=== PATIENT | female | born 1955 | race Caucasian/White ===

== ENCOUNTER 2017-10-31 16:04 | Emergency (ER) | payer OTHER ==
[~2017-10-31] VITALS: Ht 160 cm; Wt 103.0 kg
[2017-10-31 16:06] VITALS: BP 124/69; PULSE 78; RESP 16; TEMP 98; O2SAT 95
[2017-10-31] MEDS ORDERED: DIAZEPAM 10 MG TAB PO ONE (17:00)
[2017-10-31] MEDS ORDERED: SODIUM CHLOR 0.9% 1000 ML INJ 1,000 ML IV ONE (17:00)
[2017-10-31 17:27] LABS: AUTOMATED NEUTROPHIL # 4.1 TH/MM3 (1.8-7.7); BASOPHIL % 0.7 % (0.0-2.0); EOSINOPHIL # 0.3 TH/MM3 (0-0.4); HEMATOCRIT 39.1 % (35.0-46.0); HEMO FLAGS DIFF FINAL; LYMPH % 25.2 % (9.0-44.0); LYMPHOCYTE # 1.7 TH/MM3 (1.0-4.8); MEAN CELL VOLUME 88.8 FL (80.0-100.0); MEAN CORPUSCULAR HEMOGLOBIN 31.1 PG (27.0-34.0); MEAN CORPUSCULAR HGB CONC 35.1 % (32.0-36.0); MONO % 8.6 % (0.0-8.0); NEUT % 60.5 % (16.0-70.0); PLATELET COUNT 228 TH/MM3 (150-450); RED CELL DISTRIBUTION WIDTH 14.1 % (11.6-17.2); WHITE BLOOD COUNT 6.8 TH/MM3 (4.0-11.0)
[2017-10-31 17:44] LABS: ANION GAP 5 MEQ/L (5-15); AST (GOT) 17 U/L (15-37); BICARBONATE 31.2 MEQ/L (21.0-32.0); BLOOD UREA NITROGEN 19 MG/DL (7-18); CHLORIDE 105 MEQ/L (98-107); GLOMERULAR FILTRATION RATE 45 ML/MIN (>89); SODIUM (NA) 141 MEQ/L (136-145)
[2017-10-31 17:45] LABS: ALT (GPT) 30 U/L (10-53)
[2017-10-31 17:47] LABS: ALKALINE PHOSPHATASE 97 U/L (45-117); TOTAL BILIRUBIN ADULT 0.3 MG/DL (0.2-1.0)
--- NOTE | 2017-10-31 18:01 | RADRPT ---
EXAM DATE/TIME: 10/31/2017 17:40 [facility] COMPARISON: No previous studies available for comparison. INDICATIONS : Patient complains of headache. RADIATION DOSE: 56.35 CTDIvol (mGy) MEDICAL HISTORY : None SURGICAL HISTORY : None. ENCOUNTER: Initial ACUITY: 1 day PAIN SCALE: 8/10 LOCATION: cranial TECHNIQUE: Multiple contiguous axial images were obtained of the head. Using automated exposure control and adj ustment of the mA and/or kV according to patient size, radiation dose was kept as low as reasonably a chievable to obtain optimal diagnostic quality images. DICOM format image data is available electro nically for review and comparison. FINDINGS: CEREBRUM: The ventricles are normal. No evidence of midline shift, mass lesion, hemorrhage or acute infarction . No extra-axial fluid collections are seen. POSTERIOR FOSSA: The cerebellum and brainstem are intact. The 4th ventricle is midline. The cerebellopontine angle i s unremarkable. EXTRACRANIAL: Visualized sinuses are clear. SKULL: The calvaria is intact. No evidence of skull fracture. CONCLUSION: No acute intracranial abnormality is identified. Angel Schofield MD on October 31, 2017 at 17:57 Board Certified Radiologist. This report was verified electronically.
[2017-10-31] MEDS ORDERED: DIAZ5 PO (18:28)
--- NOTE | 2017-10-31 18:28 | PD ---
HPI Chief Complaint: Anxiety Time Seen by Provider: 16:34 Travel History International Travel<30 days: No Contact w/Intl Traveler<30days: No Traveled to known affect area: No History of Present Illness HPI Patient is a 62-year-old female comes in complaining of muscle spasms. She says for the past week she's had involuntary movement of her head. She went to see her primary care doctor who sent her here for further testing. Per the documentation from the PCP, she wants to rule out medical problems, but it could be a psychiatric issue. Patient does say she is under a lot of stress at work, and thinks that this is related. She does complain of a headache, mostly across the front of her head, but some in the back of her head. She tried taking some Tylenol, but says this did not help with her headache. PFSH Past Medical History Hx Anticoagulant Therapy: Yes (ASPIRIN ) ?: Not Social History Alcohol Use: No Tobacco Use: No Substance Use: No Allergies-Medications (Allergen,Severity, Reaction): Coded Allergies: No Known Allergies (Verified Allergy, Severe, 02/28/05) Review of Systems Except as stated in HPI: all other systems reviewed are Neg General / Constitutional: No: Fever, Chills Eyes: No: Blurred Vision HENT: Positive: Headaches, Lightheadedness Cardiovascular: No: Chest Pain or Discomfort Respiratory: No: Shortness of Breath Gastrointestinal: No: Nausea, Vomiting Genitourinary: No: Dysuria Musculoskeletal: Positive: Pain, No: Edema Skin: No Rash, No Change in Pigmentation Neurologic: No: Weakness, Dizziness Psychiatric: Positive: Anxiety Physical Exam Narrative GENERAL: Awake and alert, in no acute distress. SKIN: Focused skin assessment warm/dry. HEAD: Atraumatic. Normocephalic. EYES: Pupils equal and round. No scleral icterus. Extraocular movements intact. ENT: Mucous membranes pink and moist. NECK: Trachea midline. No JVD. CARDIOVASCULAR: Regular rate and rhythm. No murmur appreciated. RESPIRATORY: No accessory muscle use. Clear to auscultation. Breath sounds equal bilaterally. GASTROINTESTINAL: Abdomen soft, non-tender, nondistended. MUSCULOSKELETAL: No obvious deformities. No clubbing. No cyanosis. No edema. NEUROLOGICAL: Awake and alert. No obvious cranial nerve deficits. Motor grossly within normal limits. Normal speech. PSYCHIATRIC: Appropriate mood and affect; insight and judgment normal. Data Data Last Documented VS Vital Signs Date Time Temp Pulse Resp B/P (MAP) Pulse Ox O2 Delivery O2 Flow Rate FiO2 10/31/17 16:06 98.0 78 16 124/69 (87) 95 Room Air Orders Orders Ct Brain W/O Iv Contrast(Rout) (10/31/17 ) Iv Access Insert/Monitor (10/31/17 16:53) Complete Blood Count With Diff (10/31/17 16:53) Comprehensive Metabolic Panel (10/31/17 16:53) Sodium Chlor 0.9% 1000 Ml Inj (Ns 1000 M (10/31/17 17:00) Diazepam (Valium) (10/31/17 17:00) Labs Laboratory Tests Test 10/31/17 17:10 White Blood Count 6.8 TH/MM3 Red Blood Count 4.40 MIL/MM3 Hemoglobin 13.7 GM/DL Hematocrit 39.1 % Mean Corpuscular Volume 88.8 FL Mean Corpuscular Hemoglobin 31.1 PG Mean Corpuscular Hemoglobin Concent 35.1 % Red Cell Distribution Width 14.1 % Platelet Count 228 TH/MM3 Mean Platelet Volume 7.7 FL Neutrophils (%) (Auto) 60.5 % Lymphocytes (%) (Auto) 25.2 % Monocytes (%) (Auto) 8.6 % Eosinophils (%) (Auto) 5.0 % Basophils (%) (Auto) 0.7 % Neutrophils # (Auto) 4.1 TH/MM3 Lymphocytes # (Auto) 1.7 TH/MM3 Monocytes # (Auto) 0.6 TH/MM3 Eosinophils # (Auto) 0.3 TH/MM3 Basophils # (Auto) 0.0 TH/MM3 CBC Comment DIFF FINAL Differential Comment Blood Urea Nitrogen 19 MG/DL Creatinine 1.22 MG/DL Random Glucose 93 MG/DL Total Protein 7.2 GM/DL Albumin 3.5 GM/DL Calcium Level 8.7 MG/DL Alkaline Phosphatase 97 U/L Aspartate Amino Transf (AST/SGOT) 17 U/L Alanine Aminotransferase (ALT/SGPT) 30 U/L Total Bilirubin 0.3 MG/DL Sodium Level 141 MEQ/L Potassium Level 4.0 MEQ/L Chloride Level 105 MEQ/L Carbon Dioxide Level 31.2 MEQ/L Anion Gap 5 MEQ/L Estimat Glomerular Filtration Rate 45 ML/MIN MDM Medical Decision Making Medical Screen Exam Complete: Yes Emergency Medical Condition: Yes Differential Diagnosis Muscle spasm versus electrolyte abnormality versus intracranial pathology versus anxiety Narrative Course Patient is a 62-year-old female who comes in complaining of a muscle spasm and involuntary movements of her head. While speaking with her, it seems as though the movements are controllable and she only has them when she is not distracted. Exam shows no neurologic abnormalities. IV established, labs sent. Labs show electrolytes within normal limits. CT of the head performed shows no acute abnormalities. She is given Valium and feels much better. She' ll be discharged with a prescription for a few Valium. She is advised follow- up with her doctor. Advised to return to the ED as needed for any worsening symptoms. Diagnosis Primary Impression: Muscle spasm Patient Instructions: General Instructions, Muscle Spasm (ED) Additional Instructions: Take Valium as needed for muscle spasm. Follow-up with your doctor. Drink plenty of fluids. Return to the ED as needed for any worsening symptoms. Scripts Diazepam (Valium) 5 Mg Tab 5 MG PO TID Y for SPASM, #7 TAB 0 Refills Prov: Martina Dotson MD 10/31/17 Disposition: DISCHARGE HOME Condition: Stable Martina Dotson MD Oct 31, 2017 18:28
[2017-10-31 18:38] VITALS: BP 132/68; PULSE 72; RESP 16; O2SAT 100
== END 2017-10-31 18:52 | disposition home or self-care (01) ==
LOC: NEPE 16:04
DX: M62.838 Other muscle spasm (principal); R25.9 Unspecified abnormal involuntary movements; R51 Headache; Z79.82 Long term (current) use of aspirin
CPT/HCPCS: 70450; 80053; 85025; 99285; J7030

== ENCOUNTER 2017-11-04 12:37 | Inpatient (IN) | payer OTHER ==
[~2017-11-04] VITALS: Ht 161.3 cm; Wt 105.8 kg
[~2017-11-04 12:37] MED LIST: DIAZ5 PO
[2017-11-04 12:39] VITALS: BP 126/80; PULSE 78; RESP 18; TEMP 98.6; O2SAT 97
[2017-11-04 13:03] VITALS: BP 134/78; PULSE 71; RESP 18; TEMP 97.8; O2SAT 96
--- NOTE | 2017-11-04 15:00 | PD ---
HPI Chief Complaint: Medical Clearance Time Seen by Provider: 14:39 Travel History International Travel<30 days: No Contact w/Intl Traveler<30days: No Traveled to known affect area: No History of Present Illness HPI 62-year-old female presents to the department concerned about panic attacks and anxiety. Patient states that she was here last with similar complaints and had multiple labs and CT head performed without acute process. Patient was discharged with Valium and diagnosed her muscle spasms and advised follow-up with primary care physician. Patient states that she has not followed up with her primary care or psych by her primary care physician did suggest she follow up with [facility]. Because of weight times at [facility], patient was allegedly advised to return to the emergency department for evaluation by psychiatrist. Patient denies fever, chills, chest pain, short of breath. Denies hallucinations, suicidal or homicidal ideations. Patient denies illicit drug use and is taking her current medications as prescribed. Patient has history of mitral valve prolapse, hypertension, depression, and asthma. Patient took her last Valium at 1245 this morning and is concerned that she is developing a panic attack again. PFSH Past Medical History Hx Anticoagulant Therapy: Yes (ASPIRIN ) Social History Alcohol Use: No Tobacco Use: No Substance Use: No Allergies-Medications (Allergen,Severity, Reaction): Coded Allergies: No Known Allergies (Verified Allergy, Severe, 02/28/05) naproxen (Verified Allergy, Unknown, Hives, 11/04/17) Per pt. pseudoephedrine (Verified Allergy, Unknown, Tachycardia, 11/04/17) Per pt. Reported Meds & Prescriptions Reported Meds & Active Scripts Active Valium (Diazepam) 5 Mg Tab 5 Mg PO TID PRN Review of Systems Except as stated in HPI: all other systems reviewed are Neg Physical Exam Narrative GENERAL: Well developed well nourished in no apparent distress SKIN: Focused skin assessment warm/dry. HEAD: Atraumatic. Normocephalic. EYES: Pupils equal and round. No scleral icterus. No injection or drainage. ENT: No nasal bleeding or discharge. Mucous membranes pink and moist. NECK: Trachea midline. No JVD. CARDIOVASCULAR: Regular rate and rhythm. No murmur appreciated. RESPIRATORY: No accessory muscle use. Clear to auscultation. Breath sounds equal bilaterally. MUSCULOSKELETAL: No obvious deformities. No clubbing. No cyanosis. No edema. NEUROLOGICAL: Awake and alert. No obvious cranial nerve deficits. Motor grossly within normal limits. Normal speech. PSYCHIATRIC: hypomanic, mood fluctuations Data Data Last Documented VS Vital Signs Date Time Temp Pulse Resp B/P (MAP) Pulse Ox O2 Delivery O2 Flow Rate FiO2 11/04/17 18:28 69 18 137/84 (101) 97 Room Air 11/04/17 13:03 97.8 Orders Orders Psych Screen (11/04/17 15:00) Diet Regular Basic (11/04/17 Dinner) MDM Medical Decision Making Medical Screen Exam Complete: Yes Emergency Medical Condition: Yes Differential Diagnosis Panic attack, anxiety, depression, mood disorder, MDD Narrative Course 62-year-old female presents to the department concerned about panic attacks and anxiety. Patient states that she was here last with similar complaints and had multiple labs and CT head performed without acute process. Patient was discharged with Valium and diagnosed her muscle spasms and advised follow-up with primary care physician. Patient states that she has not followed up with her primary care or psych by her primary care physician did suggest she follow up with [facility]. Because of weight times at [facility], patient was allegedly advised to return to the emergency department for evaluation by psychiatrist. Patient denies fever, chills, chest pain, short of breath. Denies hallucinations, suicidal or homicidal ideations. Patient denies illicit drug use and is taking her current medications as prescribed. Patient has history of mitral valve prolapse, hypertension, depression, and asthma. Vital signs stable Physical exam unremarkable Reviewed CT head scan October 31 which were unremarkable and noncontributory. Patient states compliance with medications and denies illicit drug use. I have no reason to believe otherwise. Patient is cleared to see psych. Diagnosis Primary Impression: Anxiety Condition: Stable Mallory Love Nov 04, 2017 15:00
[2017-11-04 18:28] VITALS: BP 137/84; PULSE 69; RESP 18; O2SAT 97
[2017-11-04] MEDS ORDERED: LEVO137T2 PO (20:51)
[2017-11-04] MEDS ORDERED: SERT-129 PO (20:51)
[2017-11-04] MEDS ORDERED: METO25TA3 PO (20:51)
[2017-11-04] MEDS ORDERED: PRAV40TA2 PO (20:51)
[2017-11-05 06:24] VITALS: BP_SYST 137; BP_DIAS 6; BP_DIAS 73; PULSE 83; RESP 18; O2SAT 98
[2017-11-05] MEDS ORDERED: ALUMINUM/MAGNESIUM/SIMETH 30 ML CUP PO PRN (11:15)
[2017-11-05] MEDS ORDERED: LORazepam 2 MG/ML VIAL IM PRN (11:15)
[2017-11-05] MEDS ORDERED: MAGNESIUM HYDROXIDE SUSP 30 ML CUP PO PRN (11:15)
--- NOTE | 2017-11-05 11:28 | HHI.HP ---
Provisional Diagnosis Admission Date Nov 05, 2017 at 11:06 [place] I. Brief psychotic disorder Certification of Person's Competence To Provide Express and Informed Consent I have personally examined Alicia Chen , a person being served at [facility] on, Nov 05, 2017 11:12. Express and informed consent means consent voluntarily given in writing, by a competent person, after sufficient explanation and disclosure of the subject matter involved to enable the person to make a knowing and willful decision without any element of force, fraud, deceit, duress, or other form of constraint or coercion. This person is 18 years of age or older, is not now known to be incompetent to consent to treatment with a guardian advocate, and does not have a health care surrogate or proxy currently making medical treatment decisions. I have found this person to be one of the following: [X] Competent to provide express and informed consent, as defined above, for voluntary admission to this facility and is competent to provide express and informed consent for treatment. He/she has the consistent capacity to make well reasoned, willful, and knowing decisions concerning his or her medical or mental health treatment. The person fully and consistently understands the purpose of the admission for examination/placement and is fully capable of personally exercising all rights assured [place] Incompetent to provide express and informed consent to voluntary admission, and this is incompetent to provide express and informed consent to treatment. The person must be transferred to involuntary status and a petition for a guardian advocate filed with the Circuit Court. [] Refusing to provide express and informed consent to voluntary admission but is competent to provide express and informed consent for treatment. The person must be discharged or transferred to involuntary status. Form shall be completed within 24 hours of a person's arrival at the receiving facility and filed in the clinical record of each person: 1. Admitted on a voluntary basis 2. Permitted to provide express and informed consent to his/her own treatment 3. Allowed to transfer from involuntary to voluntary status 4. Prior to permitting a person to consent to his or her own treatment after having been previously found incompetent to consent to treatment. History of Present Illness Capacity: Has Capacity HPI 62-year-old female presenting for the third time in the last several weeks with bizarre complaints of involuntary head movement issues, mood and anxiety symptoms, delusional believes, memory problems, etc. This physician reviewed patient's previous visits to [place] and spent considerable time interviewing her. She has an inappropriate affect and cries over the loss of her mother, 2 years ago but almost immediately smiles and laughs for no good reason. She is exhibiting flight of ideas and often times pressured speech, with tangentiality and circumstantiality. She reports significant memory loss that has been associated with inability to adequately do her job, impairing her decision making ability, making her fearful, etc. She feels she has somehow had a short circuiting of her brain and "blown multiple fuses". She is hyper druze and has been reading a Bible in her room in the emergency department for many hours. She states she prays a lot and has druze experiences which can be described as other worldly. At this time she is unable to adequately care for herself and falls down repeatedly for no apparent reason, losing consciousness, "seeing stars" and experiencing multiple concussions. She feels confused in her thinking and certainly presents herself demonstrating confused and disorganized thoughts. No alcohol or drug abuse is involved and her toxicology screen is negative Review of Systems Psychiatric: COMPLAINS OF: Anxiety, Confusion, Mood changes, Delusions Except as stated in HPI: all other systems reviewed are Neg Past Psych History Psychological trauma history Denied for psychological trauma. Violence risk - others (6 mos) Minimal. Violence risk - self (6 mos) High risk of harm to self, either "inadvertently" or on purpose. Substance Abuse History Drugs/Alcohol past 12 months Denied Past Family Social History Coded Allergies: naproxen (Verified Allergy, Unknown, Hives, 11/04/17) Per pt. pseudoephedrine (Verified Allergy, Unknown, Tachycardia, 11/04/17) Per pt. Active Scripts Diazepam (Valium) 5 Mg Tab, 5 MG PO TID Y for SPASM, #7 TAB 0 Refills Prov:Martina Dotson MD 10/31/17 Reported Medications Sertraline (Sertraline) 100 Mg Tab, 150 MG PO DAILY, #30 TAB 0 Refills 11/04/17 Metoprolol Tartrate (Metoprolol Tartrate) 25 Mg Tab, 25 MG PO BID, #60 TAB 0 Refills 11/04/17 Pravastatin (Pravastatin) 40 Mg Tab, 40 MG PO DAILY for Cholesterol Management, #30 TAB 0 Refills 11/04/17 Levothyroxine (Levothyroxine) 137 Mcg Tab, 137 MCG PO DAILY for Thyroid, #30 TAB 0 Refills 11/04/17 Current Medications Medications (Trade) Dose Ordered Sig/[place] Route Start Time Stop Time Status Last Admin (Ativan) 1 mg Q6H PRN PO 11/05/17 11:15 UNV (Ativan Inj) 1 mg Q6H PRN IM 11/05/17 11:15 UNV (Tylenol) 650 mg Q4H PRN PO 11/05/17 11:15 UNV (Milk Of Magnesia Liq) 30 ml DAILY PRN PO 11/05/17 11:15 UNV (Mag-Al Plus Susp Liq) 30 ml Q6H PRN PO 11/05/17 11:15 UNV Family Psych History Patient describes one or both parents as experiencing "mental breakdowns" during their lives in which they were incapacitated. Other family relatives have also had "mental breakdowns". 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 However, she has been unable to go to work for the last several days. She is but states her is retired. She has a daughter, but is overwrought with stress from her daughter's situation. As stated above, patient does not use alcohol or drugs. Patient is unable to work at this time. She is unable to function at this time. She is confused, falling for no apparent reason, and presenting with headaches, memory loss, anxiety, inappropriate affect, etc. Patient's Strengths (min. 2) Verbal and has access to healthcare. Physical Exam GENERAL: SKIN: Warm and dry. HEAD: Normocephalic. EYES: No scleral icterus. No injection or drainage. NECK: Supple, trachea midline. No JVD or lymphadenopathy. CARDIOVASCULAR: Regular rate and rhythm without murmurs, gallops, or rubs. RESPIRATORY: Breath sounds equal bilaterally. No accessory muscle use. GASTROINTESTINAL: Abdomen soft, non-tender, nondistended. MUSCULOSKELETAL: No cyanosis, or edema. BACK: Nontender without obvious deformity. No CVA tenderness. Vital Signs Vital Signs Date Time Temp Pulse Resp B/P (MAP) Pulse Ox O2 Delivery O2 Flow Rate FiO2 11/05/17 06:24 83 18 137/73 (94) 98 Room Air 11/04/17 13:03 97.8 Mental Status Examination Appearance: Appropriate Consciousness: Alert Orientation: Person, Place, Date/Time Motor Activity: Abnormal gait Speech: Pressured, Hesitant Language: Adequate Fund of Knowledge: Inadequate Attention and Concentration: Inadequate Memory: Impaired Mood: Sad, Anxious, Manic Affect: Labile Thought Process & Associations: Circumstantial, Disorganized, Tangential Thought Content: Bizarre thinking, Ideas of reference, Depersonalization, Derealization, Delusional Hallucination Type: None Delusion Type: Somatic Suicidal Ideation: No Suicidal Plan: No Suicidal Intention: No Homicidal Ideation: No Homicidal Plan: No Homicidal Intention: No Insight: Fair Judgment: Impulsive Assessment & Plan Problem List: (1) Brief psychotic disorder ICD Codes: F23 - Brief psychotic disorder Assessment & Plan Estimated LOS: days. 62-year-old female presents repeatedly to the emergency department with multiple bizarre complaints, inappropriate mood changes, inappropriate affect, complaints of loss of consciousness with concussions, confusion, memory loss, delusional thinking of having "blown multiple fuses" in her brain, inability to work and inability to care for herself. She is therefore being admitted for further evaluation and treatment. This physician has ordered an MRI scan of the patient's brain as CT scans were negative and she continues to complain of headache, involuntary movements, confusion, syncopal episodes, concussions, etc. A neurology consult was also requested for the same reasons. This physician ordered a CBC and comprehensive metabolic panel to determine if any infectious process or metabolic process is causing or contributing to her mood and anxiety symptoms, confusion, etc. Also ordered is thyroid stimulating hormone level, vitamin B-12 and vitamin D level, and case deficiencies in these areas are causing or contributing to the patient' s confusion and mood disorder. An EKG is being ordered to determine the patient 's cardiac conduction status prior to instituting significant changes in psychotropic medicines, which may adversely affect her heart. This physician spoke to the patient's nurse, [place], regarding her recent behavior. Case management will also be involved to assist with information gathering and disposition planning. Bakari Noel MD Nov 05, 2017 11:28
[2017-11-05 12:01] VITALS: BP 137/73; PULSE 83; RESP 18; O2SAT 98
[2017-11-05] MEDS: ACETAMINOPHEN 325 MG TAB PO PRN (12:10)
[2017-11-05] MEDS ORDERED: GADODIAMIDE PF 287 MG/ML 20 ML VIAL (for RAD MRI) IVCONTRAST ONE (13:12)
--- NOTE | 2017-11-05 14:01 | RADRPT ---
EXAM DATE/TIME: 11/05/2017 12:52 [facility] COMPARISON: No previous studies available for comparison. INDICATIONS : Involuntary head movement issues, mood and anxiety symptoms, delusional believes, memory problems. CONTRAST: 20 cc Omniscan (gadodiamide) IV MEDICAL HISTORY : Hypertension. SURGICAL HISTORY : section. Tonsillectomy. ENCOUNTER: Initial ACUITY: 1 day PAIN SCORE: 0/10 LOCATION: cranial TECHNIQUE: Multiplanar, multisequence MRI of the brain was performed both prior to and following the administrat ion of paramagnetic contrast. FINDINGS: CEREBRUM: The ventricles are mildly prominent. No evidence of midline shift, mass lesion, hemorrhage or acute infarction. No extraaxial fluid collections are seen. The pituitary gland and suprasellar cistern a re normal in configuration. WHITE MATTER: No significant signal abnormalities are seen in the white matter. POSTERIOR FOSSA: The cerebellum and brainstem are intact. The 4th ventricle is midline. The cerebellopontine angle is unremarkable. The cerebellar tonsils are normal in position. DIFFUSION IMAGING: No focal areas of restricted diffusion are seen. No evidence of acute infarction. EXTRACRANIAL: The visualized portions of the orbits and paranasal sinuses are unremarkable. POST-CONTRAST: No abnormal areas of parenchymal or dural enhancement. No evidence of blood-brain barrier breakdown. CONCLUSION: 1. Mildly prominent ventricles 2. Otherwise normal exam without evidence of acute or chronic ischemic disease, hemorrhage, mass or e jenn. 3. No evidence of enhancing intra-or extra-axial lesions Rafa Carver MD on November 05, 2017 at 13:57 Board Certified Radiologist. This report was verified electronically.
--- NOTE | 2017-11-05 15:20 | PD.CONS ---
HPI Service [facility] Hospitalists Consult Requested By Dr. Noel Reason for Consult "Reporting involuntary movements of her head. Bizarre presentation. Please evaluate." Primary Care Physician Radha Hurt DO Diagnoses: (1) Hyperlipidemia (2) Hypothyroidism (3) Mitral valve prolapse (4) Anxiety History of Present Illness The patient is a 62-year-old female admitted to inpatient psychiatry. Hospitalist consultation was requested for evaluation of reported involuntary movements of the head, headache, and other vague complaints. The patient states that over the past few days she has had increased difficulty focusing at work. She has noted some difficulty speaking as well as some confusion. She has been very anxious. She denies fever, chills, night sweats. She denies chest pain, dyspnea. She describes involuntary movements including flailing of her arms and vivienne of her neck and upper arm muscles. She describes a headache that felt like tightness around her entire head. It is much better at this time after she was given Tylenol. Review of Systems Constitutional: DENIES: Fever, Chills, Night Sweats Eyes: DENIES: Blurred vision, Vision loss Ears, nose, mouth, throat: DENIES: Hearing loss Respiratory: DENIES: Cough, Wheezing, Sputum production, Shortness of breath Cardiovascular: DENIES: Chest pain, Palpitations, Dyspnea on Exertion, Lower Extremity Edema Gastrointestinal: DENIES: Abdominal pain, Constipation, Diarrhea, Nausea, Vomiting Genitourinary: DENIES: Urinary frequency, Urinary incontinence, Urgency, Hematuria, Dysuria, Nocturia Musculoskeletal: DENIES: Joint pain, Muscle aches Integumentary: DENIES: Pruritus, Rash Hematologic/lymphatic: DENIES: Bruising Neurologic: COMPLAINS OF: Headache Past Family Social History Allergies: Coded Allergies: naproxen (Verified Allergy, Unknown, Hives, 11/04/17) Per pt. pseudoephedrine (Verified Allergy, Unknown, Tachycardia, 11/04/17) Per pt. Past Medical History Mitral valve prolapse Hyperlipidemia Anxiety Hypothyroidism Past Surgical History Tonsillectomy section Reported Medications Diazepam Sertraline 150 mg daily Metoprolol 25 mg twice a day Pravastatin Synthroid Family History Father had skin cancer, CHF. Social History Denies alcohol, tobacco, or illicit drug use. Physical Exam Vital Signs Vital Signs Date Time Temp Pulse Resp B/P (MAP) Pulse Ox O2 Delivery O2 Flow Rate FiO2 11/05/17 12:54 11/05/17 12:01 83 18 137/73 (94) 98 Room Air 11/05/17 06:24 83 18 137/73 (94) 98 Room Air 11/04/17 18:28 69 18 137/84 (101) 97 Room Air Physical Exam GENERAL: Well-nourished, well-developed female in no acute distress. HEENT: Normocephalic, atraumatic. Pupils equal, round and reactive. Extraocular movements intact. No scleral icterus. No injection or drainage. Oropharynx is clear. Mucous membranes are moist. CARDIOVASCULAR: Regular rate and rhythm without murmurs, gallops, or rubs. RESPIRATORY: Clear to auscultation. No wheezes, rales, or rhonchi. Breathing is non-labored. GASTROINTESTINAL: Abdomen soft, non-tender, nondistended. EXTREMITIES: No lower extremity edema. No calf tenderness. PSYCH: Alert and oriented x 3. NEURO: Cranial nerves II through XII are grossly intact. Strength is 5/5 in all 4 extremities. Imaging Last Impressions Brain MRI 11/05/17 0000 Signed Impressions: Service Date/Time: Sunday, November 05, 2017 12:52 - CONCLUSION: 1. Mildly prominent ventricles 2. Otherwise normal exam without evidence of acute or chronic ischemic disease, hemorrhage, mass or edema. 3. No evidence of enhancing intra-or extra-axial lesions Rafa Carver MD Assessment and Plan Assessment and Plan 1. Anxiety: Management per psychiatry. 2. Involuntary movements of the head and arms: Uncertain etiology. Brain MRI shows slightly enlarged ventricles, but no other acute findings. Neurology consultation is pending. 3. Mitral valve prolapse: Continue metoprolol. 4. Hyperlipidemia: Continue statin. 5. Hypothyroidism: Continue Synthroid. Flex Paez MD Nov 05, 2017 15:20
[2017-11-05] MEDS ORDERED: METOPROLOL TARTRATE 25 MG TAB PO ONE (15:30)
[2017-11-05] MEDS ORDERED: PILL SPLITTER OTHER PRN (15:45)
[2017-11-05] MEDS: LORazepam 1 MG TAB PO PRN (16:51)
[2017-11-05 17:20] VITALS: BP 112/76; PULSE 83; RESP 18; TEMP 97.9; O2SAT 96
--- NOTE | 2017-11-05 19:03 | MB ---
cc: JULIA MCCARTHY M.D. DATE OF CONSULTATION 11/05/2017 DATE OF 1955, 62 years old REASON FOR CONSULTATION Involuntary head movements. HISTORY OF THE PRESENT ILLNESS This is a 62-year-old woman who is an inpatient here in psychiatry. Neurology is asked to evaluate for some involuntary movements of the head, some cervicogenic pain. She states she has had some neck stiffness over the last few days more on the right and some soreness. Denies any trauma. Actually was seen here on the and was given I believe some diazepam and some medication for a cervicogenic pain. Currently she is in the day room area eating dinner, a hamburger. She is sitting there, observing her. She is using both arms appropriately. There is no head titubation, no head movements whatsoever. She does not have any deficits to speech. She is very pleasant. Describes it as a tightness around her neck and maybe around the head area. Better with some analgesics. She does not have any flailing. No lip smacking. No tongue protrusion. PAST MEDICAL HISTORY 1. Mitral valve prolapse. 2. Hyperlipidemia. 3. Anxiety. 4. Hypothyroidism. PAST SURGICAL HISTORY Surgical history: 1. Tonsils. 2. . MEDICATIONS Reported meds are: 1. Diazepam. 2. Sertraline. 3. Metoprolol. 4. Pravastatain. 5. Synthroid. FAMILY HISTORY Skin cancer, CHF. SOCIAL HISTORY There is no drugs, alcohol, tobacco abuse. PHYSICAL EXAMINATION VITAL SIGNS: On exam her vitals are stable. NECK: Her neck has full range of motion without any significant spasms. She has some paracervical spine tenderness over the right. Range of motion is full. NEUROLOGIC: Pupils reactive. Face symmetrical. There is no increased tone. There is no flailing. No abnormal movements of the face, head, neck. Motor nicolas unremarkable. Otherwise normal reflexes. IMAGING STUDIES She had an MRI of the brain without contrast that was unremarkable. I did view it. I do not see any disproportionate ventricles. May have some mild atrophy. IMPRESSION A 62-year-old woman with possible cervicogenic pain causing some headaches but involuntary movements of the head and arms are not seen. If they occur that may be psychogenic. MRI was really unremarkable. Certainly an NSAID or a light muscle relaxant such as Robaxin 500 mg can be considered. She is already on SSRI but other options that we use in the office for some cervicogenic pain or as well as headaches low dose nortriptyline or amitriptyline at bedtime can be considered and they usually start with either 25 mg of amitriptyline at bedtime or 10 mg nortriptyline at bedtime, either or would be fine. But again if she is going to continue with her sertraline it may not be a good idea to combine two medications. However, you can certainly use analgesic such as acetaminophen combined with Robaxin 500 mg at nighttime versus p.r.n. Labs were reviewed. We will go ahead and add a thyroid panel just to make sure there is nothing abnormal from that perspective. Her CBC and chemistries have not been done recently since the so I will go ahead and check that. Otherwise from my perspective no other workup is indicated at this point in time. MD DONALDO Hickman/DARIEN /5:55 PM /6:46 PM
[2017-11-05] MEDS: METOPROLOL TARTRATE 25 MG TAB PO SCH (21:00)
[2017-11-05] MEDS: METHOCARBAMOL 500 MG TAB PO PRN (22:49)
[2017-11-06] MEDS: LORazepam 1 MG TAB PO PRN (03:41)
[2017-11-06 03:45] VITALS: BP 145/65; PULSE 75; O2SAT 92
[2017-11-06 06:08] VITALS: BP 145/65; PULSE 75; TEMP 97.1; O2SAT 97
[2017-11-06] MEDS: LEVOTHYROXINE SODIUM 112 MCG TAB PO SCH (06:15)
[2017-11-06] MEDS: LEVOTHYROXINE SODIUM 25 MCG TAB PO SCH (06:15)
[2017-11-06 07:59] LABS: HEMATOCRIT 43.9 % (35.0-46.0); MEAN CELL VOLUME 90.5 FL (80.0-100.0); MEAN CORPUSCULAR HEMOGLOBIN 29.8 PG (27.0-34.0); MEAN CORPUSCULAR HGB CONC 32.9 % (32.0-36.0); PLATELET COUNT 226 TH/MM3 (150-450); RED BLOOD COUNT 4.86 MIL/MM3 (4.00-5.30); RED CELL DISTRIBUTION WIDTH 13.9 % (11.6-17.2); WHITE BLOOD COUNT 6.1 TH/MM3 (4.0-11.0)
[2017-11-06 08:03] LABS: HEMO FLAGS AUTO DIFF
[2017-11-06 08:10] LABS: ANION GAP 3 MEQ/L (5-15); AST (GOT) 20 U/L (15-37); BICARBONATE 32.8 MEQ/L (21.0-32.0); BLOOD UREA NITROGEN 15 MG/DL (7-18); CHLORIDE 104 MEQ/L (98-107); GLOMERULAR FILTRATION RATE 69 ML/MIN (>89); POTASSIUM 3.4 MEQ/L (3.5-5.1); SODIUM (NA) 140 MEQ/L (136-145)
[2017-11-06] MEDS: METOPROLOL TARTRATE 25 MG TAB PO SCH ×2 (08:20→20:40)
[2017-11-06] MEDS: PRAVASTATIN SOD 40 MG TAB PO SCH (08:20)
[2017-11-06 08:35] LABS: ALKALINE PHOSPHATASE 99 U/L (45-117); ALT (GPT) 30 U/L (10-53); FREE T4 1.19 NG/DL (0.76-1.46); HDL CHOLESTEROL 51.1 MG/DL (40.0-60.0); LDL CHOLESTEROL 98 MG/DL (0-99); TOTAL BILIRUBIN ADULT 0.3 MG/DL (0.2-1.0)
[2017-11-06 09:00] LABS: BASOPHILS 1 % (0-2); EOSINOPHILS 3 % (0-4); METAMYELOCYTES 1 % (0-1); MYELOCYTES 1 % (0-0); NEUTROPHIL # MANUAL DIFF 3.7 TH/MM3 (1.8-7.7); PLATELET ESTIMATE SMEAR NORMAL (NORMAL); POLYS (SEG NEUTROPHILS) 58 % (16-70); WBC DIFF SAMPLE 100
[2017-11-06] MEDS ORDERED: NON-FORMULARY DRUG (Levothyroxine 137 MCG) PO SCH (09:00)
[2017-11-06 09:03] LABS: PLATELET MORPHOLOGY NORMAL (NORMAL); SCAN/DIFF FINAL DIFF MANUAL
--- NOTE | 2017-11-06 09:08 | HHI.PR ---
Subjective Remarks Follow up on patient with hypothyroidism, mitral valve prolapse. Patient seen and examined. Patient complaining for left ear irritation. Denies any trauma. Denies any drainage. Denies any fever or chills. She reports hx of allergies and was using Flonase at home. Denies any headache or neck pain today. Denies any sputum or shortness of breath. Denies any nausea, vomiting or abdominal pain. Objective Vitals Vital Signs Date Time Temp Pulse Resp B/P (MAP) Pulse Ox O2 Delivery O2 Flow Rate FiO2 11/06/17 06:08 97.1 75 145/65 (91) 97 11/06/17 03:45 75 145/65 (91) 92 11/05/17 17:20 97.9 83 18 112/76 (88) 96 11/05/17 12:54 11/05/17 12:01 83 18 137/73 (94) 98 Room Air Result Diagram: 11/06/17 0725 11/06/17 0725 Imaging Last Impressions Brain MRI 11/05/17 0000 Signed Impressions: Service Date/Time: Sunday, November 05, 2017 12:52 - CONCLUSION: 1. Mildly prominent ventricles 2. Otherwise normal exam without evidence of acute or chronic ischemic disease, hemorrhage, mass or edema. 3. No evidence of enhancing intra-or extra-axial lesions Rafa Carver MD Objective Remarks GENERAL: Well-nourished, well-developed patient in NAD. Awake and alert. Sitting up in day room. SKIN: Warm and dry. HEAD: Normocephalic. Atraumatic. EYES: EOMI. No scleral icterus. No injection or drainage. ENT: No nasal bleeding or discharge. Mucous membranes pink and moist. Bilateral ear canals unremarkable, bilateral TMs mildly erythematous and retracted, no evidence of fluid. NECK: Supple. Trachea midline. CARDIOVASCULAR: Regular rate and rhythm. S1, S2 noted. No murmur appreciated. RESPIRATORY: Nonlabored. Clear to auscultation. Breath sounds equal bilaterally. GASTROINTESTINAL: Abdomen soft, non-tender, nondistended. Normoactive bowel sounds x4. MUSCULOSKELETAL: No obvious deformities. Extremities without clubbing, cyanosis , or edema. NEUROLOGICAL: Awake and alert. Motor and sensory function grossly intact in bilateral upper and lower extremities. Normal speech. PSYCHIATRIC: Appropriate mood and affect; insight and judgment normal. Medications and IVs Current Medications Medications (Trade) Dose Ordered Sig/Kaykay Route Start Time Stop Time Status Last Admin (Ativan) 1 mg Q6H PRN PO 11/05/17 11:15 11/06/17 03:41 (Ativan Inj) 1 mg Q6H PRN IM 11/05/17 11:15 (Tylenol) 650 mg Q4H PRN PO 11/05/17 11:15 11/05/17 12:10 (Milk Of Magnesia Liq) 30 ml DAILY PRN PO 11/05/17 11:15 (Mag-Al Plus Susp Liq) 30 ml Q6H PRN PO 11/05/17 11:15 (Lopressor) 25 mg BID PO 11/05/17 21:00 11/06/17 08:20 (Pravachol) 40 mg DAILY PO 11/06/17 09:00 11/06/17 08:20 (Pill Splitter) 1 ea UNSCH PRN OTHER 11/05/17 15:45 (Synthroid) 112 mcg DAILY@0600 PO 11/06/17 06:00 11/06/17 06:15 (Synthroid) 25 mcg DAILY@0600 PO 11/06/17 06:00 11/06/17 06:15 (Robaxin) 500 mg BID PRN PO 11/05/17 18:00 11/05/17 22:49 (Flonase Socrates Spr) 2 spray DAILY NASAL 11/06/17 09:00 UNV A/P Problem List: (1) Hyperlipidemia ICD Code: E78.5 - Hyperlipidemia, unspecified (2) Hypothyroidism ICD Code: E03.9 - Hypothyroidism, unspecified (3) Mitral valve prolapse ICD Code: I34.1 - Nonrheumatic mitral (valve) prolapse (4) Anxiety ICD Code: F41.9 - Anxiety disorder, unspecified Status: Acute Assessment and Plan Psychosis Anxiety - Management per psychiatric team Involuntary movements Cervicogenic pain - Uncertain etiology. Brain MRI essentially unremarkable. Neurology consulted, appreciate assistance. Started on Robaxin as needed for neck pain. - Patient exhibiting no evidence of involuntary movements at this time. Mitral Valve Prolapse - Continue patient on home dose of metoprolol 25mg BID Hyperlipidemia - continue on statin therapy Hypothyroidism - continue patient on home dose of Synthroid - TSH WNL Auditory tube dysfunction - Suspect secondary to nasal allergies - Flonase 2 sprays in each nostril BID - Claritin daily Hypokalemia - mild, K 3.4 - po repletion - recommend repeat BMP in 2 or 3 days DVT prophylaxis Patient is ambulatory Discussed with patient, nursing staff and Dr. Meyers Patient appears stable from medical standpoint. Will sign off for now. Please reconsult if needed. Rose Haro Nov 06, 2017 09:08
[2017-11-06] MEDS: FLUTICASONE PROPIONATE 50 MCG/ACT 16 GM NASAL SPRAY NASAL SCH (10:00)
[2017-11-06] MEDS ORDERED: LORATADINE 10 MG TAB PO ONE (11:15)
[2017-11-06] MEDS ORDERED: POTASSIUM CHLORIDE 10 MEQ CONTROLLED RELEASE TAB PO ONE (11:15)
--- NOTE | 2017-11-06 14:45 | EKG ---
Date Performed: 11/06/2017 Time Performed: 10:27:04 PTAGE: 62 years EKG: Sinus rhythm NORMAL ECG NO PREVIOUS TRACING DOCTOR: Luis Conroy Interpretating Date/Time 11/06/2017 14:45:23
--- NOTE | 2017-11-06 15:45 | HHI.PYPN ---
Subjective Remarks Patient initially admitted by Dr. Bakari Noel, his initial psychiatric evaluation reviewed and agreed with. I have completed the initial psychiatric admission orders under the template. I reviewed the medications. We'll discontinue all the Ativan orders and offer Atarax, we will add Zoloft 150 mg now and daily. Patient seen in her room with nurse Orion patient is alert oriented somewhat anxious and nervous. Has had some stress at her job for the past week. 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 It appears that may not be required. In any event she still is anxious and depressed. Though she denies suicidality at this time denies voices. There is a mild paranoia with and vigilance. For now continue medications as mentioned above there are no significant head movements noted that time she appears to bend her head slightly to the left and speak with eyelids somewhat lowered Review of Systems Except as stated in HPI: all other systems reviewed are Neg Mental Status Examination Appearance: Appropriate Consciousness: Alert Orientation: Person, Place, Date/Time Motor Activity: Abnormal gait Speech: Pressured, Hesitant Language: Adequate Fund of Knowledge: Inadequate Attention and Concentration: Inadequate Memory: Impaired Mood: Sad, Anxious, Manic Affect: Labile Thought Process & Associations: Circumstantial, Disorganized, Tangential Thought Content: Bizarre thinking, Ideas of reference, Depersonalization, Derealization, Delusional Hallucination Type: None Delusion Type: Somatic Suicidal Ideation: No Suicidal Plan: No Suicidal Intention: No Homicidal Ideation: No Homicidal Plan: No Homicidal Intention: No Insight: Fair Judgment: Impulsive Results Labs Test 11/06/17 07:25 White Blood Count 6.1 TH/MM3 Red Blood Count 4.86 MIL/MM3 Hemoglobin 14.5 GM/DL Hematocrit 43.9 % Mean Corpuscular Volume 90.5 FL Mean Corpuscular Hemoglobin 29.8 PG Mean Corpuscular Hemoglobin Concent 32.9 % Red Cell Distribution Width 13.9 % Platelet Count 226 TH/MM3 Mean Platelet Volume 7.8 FL CBC Comment AUTO DIFF Differential Total Cells Counted 100 Neutrophils % (Manual) 58 % Lymphocytes % 31 % Monocytes % 5 % Eosinophils % 3 % Basophils % 1 % Neutrophils # (Manual) 3.7 TH/MM3 Metamyelocytes 1 % Myelocytes 1 % Differential Comment FINAL DIFF MANUAL Platelet Estimate NORMAL Platelet Morphology Comment NORMAL Blood Urea Nitrogen 15 MG/DL Creatinine 0.84 MG/DL Random Glucose 103 MG/DL Total Protein 7.6 GM/DL Albumin 3.9 GM/DL Calcium Level 9.1 MG/DL Alkaline Phosphatase 99 U/L Aspartate Amino Transf (AST/SGOT) 20 U/L Alanine Aminotransferase (ALT/SGPT) 30 U/L Total Bilirubin 0.3 MG/DL Sodium Level 140 MEQ/L Potassium Level 3.4 MEQ/L Chloride Level 104 MEQ/L Carbon Dioxide Level 32.8 MEQ/L Anion Gap 3 MEQ/L Estimat Glomerular Filtration Rate 69 ML/MIN Triglycerides Level 82 MG/DL Cholesterol Level 165 MG/DL LDL Cholesterol 98 MG/DL HDL Cholesterol 51.1 MG/DL Cholesterol/HDL Ratio 3.22 RATIO Vitamin B12 Level 660 PG/ML 25-Hydroxy Vitamin D Total 48.0 ng/ML Free Thyroxine 1.19 NG/DL Thyroid Stimulating Hormone 3rd Gen 1.690 uIU/ML Vitals/IOs Vital Signs Date Time Temp Pulse Resp B/P (MAP) Pulse Ox O2 Delivery O2 Flow Rate FiO2 11/06/17 06:08 97.1 75 145/65 (91) 97 11/05/17 17:20 18 11/05/17 12:01 Room Air Assessment & Plan Problem List: (1) Brief psychotic disorder ICD Codes: F23 - Brief psychotic disorder Assessment & Plan Estimated LOS: days patient remains somewhat vigilant, anxious, will restart her medication is Zoloft 150 mg daily. And observe Justification for Cont. Inpt. At this time patient decompensate if placed in a lower level of care Discharge Planning Probable return home to Angel Aguilar MD Nov 06, 2017 15:45
[2017-11-06] MEDS: SERTRALINE HCL 50 MG TAB PO SCH (16:08)
[2017-11-06 16:23] LABS: HEMOGLOBIN A1b 1.7 %; HEMOGLOBIN Ao 85.3 %; HEMOGLOBIN LA1C 2.1 %; HEMOGLOBIN P3 3.9 %
[2017-11-06 16:59] VITALS: BP 143/71; PULSE 76; RESP 18; TEMP 97.4; O2SAT 96
[2017-11-06] MEDS: diphenhydrAMINE HCL 50 MG CAP PO PRN (21:14)
[2017-11-06] MEDS: ACETAMINOPHEN 325 MG TAB PO PRN (21:14)
[2017-11-07] MEDS: LEVOTHYROXINE SODIUM 112 MCG TAB PO SCH (05:11)
[2017-11-07] MEDS: LEVOTHYROXINE SODIUM 25 MCG TAB PO SCH (05:11)
[2017-11-07 05:43] VITALS: BP 104/60; PULSE 61; RESP 16; TEMP 97.9; O2SAT 94
[2017-11-07] MEDS: SERTRALINE HCL 50 MG TAB PO SCH (09:00)
[2017-11-07] MEDS: FLUTICASONE PROPIONATE 50 MCG/ACT 16 GM NASAL SPRAY NASAL SCH (09:00)
[2017-11-07] MEDS: PRAVASTATIN SOD 40 MG TAB PO SCH (09:01)
[2017-11-07] MEDS: METOPROLOL TARTRATE 25 MG TAB PO SCH ×2 (09:01→20:51)
[2017-11-07] MEDS: LORATADINE 10 MG TAB PO SCH (09:01)
--- NOTE | 2017-11-07 12:52 | HHI.PYPN ---
Subjective Remarks Patient seen today in [facility] with floor staff, chart reviewed, patient compliant medication. Patient continues depressed needy and passive. She does deny voices or visions. Denies suicidality. She does complain of continued anxiety with some mild somatizations related to it. It appears in the way she is questioning if or when she can return to work questioning whether she should be on "short term disability. For now continue treatment Review of Systems Except as stated in HPI: all other systems reviewed are Neg Mental Status Examination Appearance: Appropriate Consciousness: Alert Orientation: Person, Place, Date/Time Motor Activity: Abnormal gait Speech: Pressured, Hesitant Language: Adequate Fund of Knowledge: Inadequate Attention and Concentration: Inadequate Memory: Impaired Mood: Sad, Anxious, Manic Affect: Labile Thought Process & Associations: Circumstantial, Disorganized, Tangential Thought Content: Bizarre thinking, Ideas of reference, Depersonalization, Derealization, Delusional Hallucination Type: None Delusion Type: Somatic Suicidal Ideation: No Suicidal Plan: No Suicidal Intention: No Homicidal Ideation: No Homicidal Plan: No Homicidal Intention: No Insight: Fair Judgment: Impulsive Results Vitals/IOs Vital Signs Date Time Temp Pulse Resp B/P (MAP) Pulse Ox O2 Delivery O2 Flow Rate FiO2 11/07/17 05:43 97.9 61 16 104/60 (75) 94 11/05/17 12:01 Room Air Assessment & Plan Problem List: (1) Brief psychotic disorder ICD Codes: F23 - Brief psychotic disorder Assessment & Plan Estimated LOS: days patient continue somewhat confused and vigilant. Compliant medications Justification for Cont. Inpt. At this time patient will decompensate if placed in a lower level of care Discharge Planning Probable return home Angel Aguilar MD Nov 07, 2017 12:52
[2017-11-07] MEDS: ACETAMINOPHEN 325 MG TAB PO PRN (14:32)
[2017-11-07 16:45] VITALS: BP 158/73; PULSE 74; RESP 17; TEMP 97.5; O2SAT 96
[2017-11-07] MEDS: diphenhydrAMINE HCL 50 MG CAP PO PRN (20:51)
[2017-11-08 05:00] VITALS: BP 107/66; PULSE 71; RESP 18; TEMP 97.6; O2SAT 95
[2017-11-08] MEDS: LEVOTHYROXINE SODIUM 112 MCG TAB PO SCH (06:01)
[2017-11-08] MEDS: LEVOTHYROXINE SODIUM 25 MCG TAB PO SCH (06:01)
[2017-11-08] MEDS: FLUTICASONE PROPIONATE 50 MCG/ACT 16 GM NASAL SPRAY NASAL SCH (09:28)
[2017-11-08] MEDS: LORATADINE 10 MG TAB PO SCH (09:29)
[2017-11-08] MEDS: SERTRALINE HCL 50 MG TAB PO SCH (09:29)
[2017-11-08] MEDS: PRAVASTATIN SOD 40 MG TAB PO SCH (09:29)
[2017-11-08] MEDS: METOPROLOL TARTRATE 25 MG TAB PO SCH ×2 (09:29→21:45)
--- NOTE | 2017-11-08 13:47 | HHI.PYPN ---
Subjective Remarks Patient seen in room with floor staff, chart reviewed, patient compliant medications. Patient continues quite labile and tearful showing some confusion about relationship with her . She is vague about suicidality at this time. Denies voices or visions. For now will increase Zoloft to 200 milligrams daily Review of Systems Except as stated in HPI: all other systems reviewed are Neg Mental Status Examination Appearance: Appropriate Consciousness: Alert Orientation: Person, Place, Date/Time Motor Activity: Abnormal gait Speech: Pressured, Hesitant Language: Adequate Fund of Knowledge: Inadequate Attention and Concentration: Inadequate Memory: Impaired Mood: Sad, Anxious, Manic Affect: Labile Thought Process & Associations: Circumstantial, Disorganized, Tangential Thought Content: Bizarre thinking, Ideas of reference, Depersonalization, Derealization, Delusional Hallucination Type: None Delusion Type: Somatic Suicidal Ideation: No Suicidal Plan: No Suicidal Intention: No Homicidal Ideation: No Homicidal Plan: No Homicidal Intention: No Insight: Fair Judgment: Impulsive Results Vitals/IOs Vital Signs Date Time Temp Pulse Resp B/P (MAP) Pulse Ox O2 Delivery O2 Flow Rate FiO2 11/08/17 05:00 97.6 71 18 107/66 (80) 95 11/05/17 12:01 Room Air Assessment & Plan Problem List: (1) Brief psychotic disorder ICD Codes: F23 - Brief psychotic disorder Assessment & Plan Estimated LOS: days patient continues depressed though her psychosis is resolving somewhat will increase Zoloft as mentioned above Justification for Cont. Inpt. At this time patient will decompensate the placed on the lower level of care Discharge Planning Return home with Angel Aguilar MD Nov 08, 2017 13:47
[2017-11-08 17:33] VITALS: BP 121/68; PULSE 75; RESP 17; TEMP 98.6; O2SAT 96
[2017-11-08] MEDS: hydrOXYzine HCL 50 MG TAB PO PRN (21:53)
[2017-11-09 00:46] VITALS: BP 153/95; PULSE 83
[2017-11-09] MEDS: diphenhydrAMINE HCL 50 MG CAP PO PRN ×2 (01:08→22:52)
[2017-11-09] MEDS: LEVOTHYROXINE SODIUM 25 MCG TAB PO SCH (05:05)
[2017-11-09] MEDS: LEVOTHYROXINE SODIUM 112 MCG TAB PO SCH (05:06)
[2017-11-09 06:00] VITALS: BP 112/62; PULSE 72; RESP 16; TEMP 97.8; O2SAT 96
[2017-11-09] MEDS: PRAVASTATIN SOD 40 MG TAB PO SCH (08:55)
[2017-11-09] MEDS: METOPROLOL TARTRATE 25 MG TAB PO SCH ×2 (08:55→22:53)
[2017-11-09] MEDS: LORATADINE 10 MG TAB PO SCH (08:55)
[2017-11-09] MEDS: SERTRALINE HCL 100 MG TAB PO SCH (08:55)
[2017-11-09] MEDS: FLUTICASONE PROPIONATE 50 MCG/ACT 16 GM NASAL SPRAY NASAL SCH (08:55)
[2017-11-09 11:46] LABS: BICARBONATE 29.2 MEQ/L (21.0-32.0); POTASSIUM 3.3 MEQ/L (3.5-5.1)
--- NOTE | 2017-11-09 13:57 | HHI.PYPN ---
Subjective Remarks Patient was seen and case discussed with nursing. Patient is here for acute psychosis and bizarre behavior. She has improved but continues to think that she has lability to speak in tongues, since childhood. Affect is quite elevated Mental Status Examination Appearance: Appropriate Consciousness: Alert Orientation: Person, Place, Date/Time Motor Activity: Abnormal gait Speech: Pressured, Hesitant Language: Adequate Fund of Knowledge: Inadequate Attention and Concentration: Inadequate Memory: Impaired Mood: Sad, Anxious, Manic Affect: Labile Thought Process & Associations: Disorganized Thought Content: Bizarre thinking, Depersonalization, Derealization, Delusional (speaking in tongues) Hallucination Type: None Delusion Type: Bizarre Suicidal Ideation: No Suicidal Plan: No Suicidal Intention: No Homicidal Ideation: No Homicidal Plan: No Homicidal Intention: No Insight: Fair Judgment: Impulsive Results Labs Test 11/09/17 09:47 Blood Urea Nitrogen 16 MG/DL Creatinine 0.73 MG/DL Random Glucose 106 MG/DL Calcium Level 8.5 MG/DL Sodium Level 143 MEQ/L Potassium Level 3.3 MEQ/L Chloride Level 106 MEQ/L Carbon Dioxide Level 29.2 MEQ/L Anion Gap 8 MEQ/L Estimat Glomerular Filtration Rate 81 ML/MIN Vitals/IOs Vital Signs Date Time Temp Pulse Resp B/P (MAP) Pulse Ox O2 Delivery O2 Flow Rate FiO2 11/09/17 06:00 97.8 72 16 112/62 (79) 96 11/05/17 12:01 Room Air Intake and Output 11/09/17 11/09/17 11/10/17 08:00 16:00 00:00 Intake Total 360 ml Balance 360 ml Assessment & Plan Problem List: (1) Brief psychotic disorder ICD Codes: F23 - Brief psychotic disorder Assessment & Plan Continue current treatment plan Justification for Cont. Inpt. Patient would decompensate in a less restrictive setting Kevin Paula DO Nov 09, 2017 13:57
[2017-11-09] MEDS: hydrOXYzine HCL 50 MG TAB PO PRN (16:53)
[2017-11-09 18:28] VITALS: BP 127/75; PULSE 71; RESP 18; TEMP 98.2; O2SAT 96
[2017-11-10] MEDS: METHOCARBAMOL 500 MG TAB PO PRN ×2 (00:49→22:00)
[2017-11-10] MEDS: ACETAMINOPHEN 325 MG TAB PO PRN (03:12)
[2017-11-10 06:00] VITALS: BP 121/57; PULSE 74; RESP 18; TEMP 97.5; O2SAT 99
[2017-11-10] MEDS: LEVOTHYROXINE SODIUM 112 MCG TAB PO SCH (06:17)
[2017-11-10] MEDS: LEVOTHYROXINE SODIUM 25 MCG TAB PO SCH (06:18)
[2017-11-10] MEDS: METOPROLOL TARTRATE 25 MG TAB PO SCH ×2 (08:24→22:00)
[2017-11-10] MEDS: SERTRALINE HCL 100 MG TAB PO SCH (08:24)
[2017-11-10] MEDS: LORATADINE 10 MG TAB PO SCH (08:24)
[2017-11-10] MEDS: PRAVASTATIN SOD 40 MG TAB PO SCH (08:25)
[2017-11-10] MEDS: FLUTICASONE PROPIONATE 50 MCG/ACT 16 GM NASAL SPRAY NASAL SCH (09:00)
--- NOTE | 2017-11-10 10:33 | HHI.PYPN ---
Subjective Remarks Patient was seen and case discussed with nursing. Patient remains elevated describes her mood is "laughy." We talked about her diagnosis of brief psychotic disorder. She relayed pentecostal beliefs and speaking in tongues how that is part of the Rastafari Alevism. Tolerating medications well. Behaving well on the unit Mental Status Examination Appearance: Appropriate Consciousness: Alert Orientation: Person, Place, Date/Time Motor Activity: Abnormal gait Speech: Unremarkable, Pressured Language: Adequate Fund of Knowledge: Adequate, Inadequate Attention and Concentration: Inadequate Memory: Impaired Mood: Anxious, Manic Affect: Labile, Other (elevated) Thought Process & Associations: Tangential Thought Content: Bizarre thinking, Depersonalization, Derealization, Delusional (speaking in tongues) Hallucination Type: None Delusion Type: Bizarre Suicidal Ideation: No Suicidal Plan: No Suicidal Intention: No Homicidal Ideation: No Homicidal Plan: No Homicidal Intention: No Insight: Fair Judgment: Impulsive Results Vitals/IOs Vital Signs Date Time Temp Pulse Resp B/P (MAP) Pulse Ox O2 Delivery O2 Flow Rate FiO2 11/10/17 06:00 97.5 74 18 121/57 (78) 99 Assessment & Plan Problem List: (1) Brief psychotic disorder ICD Codes: F23 - Brief psychotic disorder Assessment & Plan Continue current treatment plan Justification for Cont. Inpt. Patient will decompensate in a less restrictive setting Kevin Paula DO Nov 10, 2017 10:33
[2017-11-10] MEDS: hydrOXYzine HCL 50 MG TAB PO PRN ×2 (14:50→22:00)
[2017-11-10 18:35] VITALS: BP 129/77; PULSE 75; RESP 18; TEMP 98.6; O2SAT 97
[2017-11-11] MEDS: LEVOTHYROXINE SODIUM 112 MCG TAB PO SCH (05:30)
[2017-11-11] MEDS: LEVOTHYROXINE SODIUM 25 MCG TAB PO SCH (05:30)
[2017-11-11 05:53] VITALS: BP 127/61; PULSE 79; RESP 16; TEMP 97.8; O2SAT 96
[2017-11-11 06:18] VITALS: BP 127/61; PULSE 75; RESP 16; TEMP 97.8; O2SAT 98
[2017-11-11] MEDS: METHOCARBAMOL 500 MG TAB PO PRN (09:20)
[2017-11-11] MEDS: FLUTICASONE PROPIONATE 50 MCG/ACT 16 GM NASAL SPRAY NASAL SCH (09:20)
[2017-11-11] MEDS: PRAVASTATIN SOD 40 MG TAB PO SCH (09:20)
[2017-11-11] MEDS: LORATADINE 10 MG TAB PO SCH (09:20)
[2017-11-11] MEDS: METOPROLOL TARTRATE 25 MG TAB PO SCH ×2 (09:20→22:30)
[2017-11-11] MEDS: SERTRALINE HCL 100 MG TAB PO SCH (09:20)
--- NOTE | 2017-11-11 13:59 | PD.TTN ---
Patient Problems 1. Discharge planning 2. Medication compliance 3. Knowledge deficit 4. Lack of coping skills Progress Toward Goals Provider Present: Dr. Ramirez Aguilar Provider Input: 11/11/17 Patient will be assessed today for possible discharge home today or tomorrow. Psychiatric Counselors Present: TIMUR Kirby Psych Therapist Input: 11/11/17 Patient remains medication compliant and religiously focused. She reported sleeping five hours last evening. Patient continues to report involuntary movements . Group Spec/RT/OT/AKINS Present: BECCA Snell, TASHI Morales Group Spec/RT/OT/AKINS Input: 11/11/17 Patient participates in activities and is social with peers. Documentation Scribe: TIMUR Kirby Date Resolved: Nov 11, 2017 Lynette Price Nov 11, 2017 13:59
--- NOTE | 2017-11-11 15:39 | HHI.PYPN ---
Subjective Remarks Patient seen in [place] with nurse Josiane, chart review, patient compliant medications. She states she is feeling better now denies suicidality homicidality voices or visions, also states that she slept well last night. Feels medication is doing better also. For now continue treatment no change her patient continues to improve will consider discharge tomorrow to Review of Systems Except as stated in HPI: all other systems reviewed are Neg Mental Status Examination Appearance: Appropriate Consciousness: Alert Orientation: Person, Place, Date/Time Motor Activity: Abnormal gait Speech: Unremarkable, Pressured Language: Adequate Fund of Knowledge: Adequate, Inadequate Attention and Concentration: Inadequate Memory: Impaired Mood: Anxious, Manic Affect: Labile, Other (elevated) Thought Process & Associations: Tangential Thought Content: Bizarre thinking, Depersonalization, Derealization, Delusional (speaking in tongues) Hallucination Type: None Delusion Type: Bizarre Suicidal Ideation: No Suicidal Plan: No Suicidal Intention: No Homicidal Ideation: No Homicidal Plan: No Homicidal Intention: No Insight: Fair Judgment: Impulsive Results Vitals/IOs Vital Signs Date Time Temp Pulse Resp B/P (MAP) Pulse Ox O2 Delivery O2 Flow Rate FiO2 11/11/17 06:18 97.8 75 16 127/61 (83) 98 Intake and Output 11/11/17 11/11/17 11/12/17 08:00 16:00 00:00 Intake Total 360 ml Balance 360 ml Assessment & Plan Problem List: (1) Brief psychotic disorder ICD Codes: F23 - Brief psychotic disorder Assessment & Plan Estimated LOS: days patient somewhat improved now denies voices or visions suicidality homicidality. Compliant medications the patient continues to improve consider discharge tomorrow to Justification for Cont. Inpt. At this time patient would decompensated placed in a lower level of care Discharge Planning Consider return home with Angel Aguilar MD Nov 11, 2017 15:39
[2017-11-11] MEDS: ACETAMINOPHEN 325 MG TAB PO PRN (16:06)
[2017-11-11 17:53] VITALS: BP 130/73; PULSE 83; RESP 16; TEMP 97.8; O2SAT 97
[2017-11-11] MEDS: diphenhydrAMINE HCL 50 MG CAP PO PRN (22:30)
[2017-11-12] MEDS: METHOCARBAMOL 500 MG TAB PO PRN (01:58)
[2017-11-12 06:13] VITALS: BP 121/59; PULSE 67; RESP 18; TEMP 97.7; O2SAT 97
[2017-11-12] MEDS: LEVOTHYROXINE SODIUM 112 MCG TAB PO SCH (06:14)
[2017-11-12] MEDS: LEVOTHYROXINE SODIUM 25 MCG TAB PO SCH (06:14)
[2017-11-12] MEDS ORDERED: LEVO137T2 PO (08:38)
[2017-11-12] MEDS ORDERED: PRAV40TA2 PO (08:38)
[2017-11-12] MEDS ORDERED: CLAR10TA7 PO (08:38)
[2017-11-12] MEDS ORDERED: ZOLO100T PO (08:38)
[2017-11-12] MEDS ORDERED: METO25TA3 PO (08:38)
[2017-11-12] MEDS ORDERED: FLUT50SP NASAL (08:38)
--- NOTE | 2017-11-12 08:42 | HHI.DS ---
Psychiatry Discharge Summary Inpatient Psychiatric care?: Yes Advance Directive: No Reason Not Provided: patient refused Mental Health AdvanceDirective: No Health Care Proxy: No Admission Admission Date Nov 05, 2017 at 11:06 Admission Diagnosis: (1) Brief psychotic disorder ICD Code: F23 - Brief psychotic disorder (2) Anxiety ICD Code: F41.9 - Anxiety disorder, unspecified Brief History 62-year-old female presenting for the third time in the last several weeks with bizarre complaints of involuntary head movement issues, mood and anxiety symptoms, delusional believes, memory problems, etc. This physician reviewed patient's previous visits to [facility] [place] and spent considerable time interviewing her. She has an inappropriate affect and cries over the loss of her mother, 2 years ago but almost immediately smiles and laughs for no good reason. She is exhibiting flight of ideas and often times pressured speech, with tangentiality and circumstantiality. She reports significant memory loss that has been associated with inability to adequately do her job, impairing her decision making ability, making her fearful, etc. She feels she has somehow had a short circuiting of her brain and "blown multiple fuses". She is hyper jainism and has been reading a Bible in her room in the emergency department for many hours. She states she prays a lot and has jainism experiences which can be described as other worldly. At this time she is unable to adequately care for herself and falls down repeatedly for no apparent reason, losing consciousness, "seeing stars" and experiencing multiple concussions. She feels confused in her thinking and certainly presents herself demonstrating confused and disorganized thoughts. No alcohol or drug abuse is involved and her toxicology screen is negative Tobacco Use In Past 30 Days: No Tobacco Past 30 Days Alcohol Use: Never Hospital Course Patient's hospital course was uneventful, and vague loss of touch with reality slowly resolve. Her focus and attention improved. She's been compliant with the medications. She did have a good weekend. This somewhat less focusing on medications. There have been good communications with her . Patient seen today she continues to denies suicidality homicidality voices or visions. She does wish to be discharged related go home with her family. This time I feel patient has reached maximum benefit of this hospitalization. But she'll be discharged today with Rx 1 month. Counselor help find referral to psychiatrist in community through her insurance panel Results Blood Pressure 121 / 59 Vital Signs Date Time Temp Pulse Resp B/P (MAP) Pulse Ox O2 Delivery O2 Flow Rate FiO2 11/12/17 06:13 97.7 67 18 121/59 (79) 97 Laboratory Tests Test 11/09/17 09:47 Potassium Level 3.3 MEQ/L (3.5-5.1) Estimat Glomerular Filtration Rate 81 ML/MIN (>89) Laboratory Results Test 11/06/17 07:25 Cholesterol Level 165 MG/DL (120-200) HDL Cholesterol 51.1 MG/DL (40.0-60.0) Hemoglobin A1c 5.4 % (4.3-6.0) LDL Cholesterol 98 MG/DL (0-99) Triglycerides Level 82 MG/DL (42-150) Summary of Procedures None done Imaging Last Impressions Brain MRI 11/05/17 0000 Signed Impressions: Service Date/Time: Sunday, November 05, 2017 12:52 - CONCLUSION: 1. Mildly prominent ventricles 2. Otherwise normal exam without evidence of acute or chronic ischemic disease, hemorrhage, mass or edema. 3. No evidence of enhancing intra-or extra-axial lesions Rafa Carver MD Pending results at discharge: No Medications # of Antipsychotic meds at D/C: 0 Approp Antipsych med options 1 - Minimum of three failed multiple trials of monotherapy. 2 - Documented plan to taper to monotherapy due to previous use of multiple meds OR cross-taper in progress at D/C. 3 - Documentation of augmentation of Clozapine. 4 - Justification other than those listed in allowable values 1-3, document here : Discharge Discharge Date: Nov 12, 2017 Discharge Diagnosis: (1) Brief psychotic disorder Diagnosis: Principal ICD Code: F23 - Brief psychotic disorder Status: Resolved (2) Anxiety Diagnosis: Secondary ICD Code: F41.9 - Anxiety disorder, unspecified Status: Acute Pt Condition on Discharge: Stable Discharge Disposition: Discharge Home Discharge Instructions Diet Instructions: As Tolerated, No Restrictions Activities you can perform: Regular-No Restrictions Scheduled Appointment: counselor to assist in finding appropriate mental health referral Discharge Time > 30 minutes Mental Status Examination Appearance: Appropriate Consciousness: Alert Orientation: Person, Place, Date/Time Motor Activity: Abnormal gait Speech: Unremarkable, Pressured Language: Adequate Fund of Knowledge: Adequate, Inadequate Attention and Concentration: Inadequate Memory: Impaired Mood: Anxious, Manic Affect: Labile, Other (elevated) Thought Process & Associations: Tangential Thought Content: Bizarre thinking, Depersonalization, Derealization, Delusional (speaking in tongues) Hallucination Type: None Delusion Type: Bizarre Suicidal Ideation: No Suicidal Plan: No Suicidal Intention: No Homicidal Ideation: No Homicidal Plan: No Homicidal Intention: No Insight: Fair Judgment: Impulsive Discharge/Advance Care Plan Health Problems: (1) Brief psychotic disorder Goals to promote your health * To prevent worsening of your condition and complications * To maintain your health at the optimal level Directions to meet your goals Take your medications as prescribed Follow your dietary instruction Follow activity as directed Keep your appointments as scheduled Take your immunizations and boosters as scheduled If your symptoms worsen call your PCP, if no PCP go to Urgent Care Center or Emergency Room For 17/06 questions related to your inpatient stay or results of tests pending at discharge, please contact Dr. Angel Aguilar at Smoking is Dangerous to Your Health. Avoid second hand smoking Angel Aguilar MD Nov 12, 2017 08:42
[2017-11-12] MEDS: FLUTICASONE PROPIONATE 50 MCG/ACT 16 GM NASAL SPRAY NASAL SCH (09:21)
[2017-11-12] MEDS: LORATADINE 10 MG TAB PO SCH (09:21)
[2017-11-12] MEDS: METOPROLOL TARTRATE 25 MG TAB PO SCH (09:21)
[2017-11-12] MEDS: PRAVASTATIN SOD 40 MG TAB PO SCH (09:21)
[2017-11-12] MEDS: SERTRALINE HCL 100 MG TAB PO SCH (09:21)
== END 2017-11-12 17:35 | disposition home or self-care (01) | DRG 885 ==
LOC: NEPJ 12:37 → NEDA 11-05 11:06 → H260 11-05 13:50
PROVIDERS: ADMIT Psychiatry & Neurology Psychiatry; ATTEND Psychiatry & Neurology Psychiatry
DX: F23 Brief psychotic disorder (principal); F41.9 Anxiety disorder, unspecified; F32.9 Major depressive disorder, single episode, unspecified; Z81.8 Family history of other mental and behavioral disorders; I10 Essential (primary) hypertension; J45.909 Unspecified asthma, uncomplicated; I34.1 Nonrheumatic mitral (valve) prolapse; E78.5 Hyperlipidemia, unspecified; E03.9 Hypothyroidism, unspecified; M54.2 Cervicalgia; H69.80 Other specified disorders of Eustachian tube, unspecified ear; E87.6 Hypokalemia
CPT/HCPCS: 70553; 80048; 80053; 80061; 82306; 82607; 83036; 84439; 84443; 85007; 85027; 93005; 99285; A9579; Q0163